=== PATIENT | male | born 1985 | race Caucasian/White ===

== ENCOUNTER 2017-09-09 17:55 | Emergency (ER) | payer OTHER ==
[2017-09-09] MEDS ORDERED: PENICILLIN VK 500MG STARTER 4 TAB BTL PO STA (18:45)
--- NOTE | 2017-09-09 18:47 | ED ---
General Adult HPI - General Chief complaint: Skin/Abscess/Foreign Body Stated complaint: Facial Abscess Time Seen by Provider: 09/09/17 18:26 Source: patient, RN notes reviewed Mode of arrival: ambulatory Limitations: no limitations - History of Present Illness Initial comments: 32-year-old male presents to the emergency determine for a chief complaint of swelling after dental extraction. Patient had tooth extracted about 5 days ago. Patient states he has increased swelling in the upper right jaw. Patient states he talked to the dentist earlier today who recommended he come back in but patient came to the emergency department instead. Patient is not on antibiotics. Patient denies any fevers or chills at home. Patient denies any neck stiffness or swelling in the neck.Patient has no other complaints at this time including shortness of breath, chest pain, abdominal pain, nausea or vomiting, headache, or visual changes. - Related Data Previous Rx's Medication Instructions Recorded Penicillin V Potassium [Pen Vee K] 500 mg PO Q6H 10 Days tablet 09/09/17 Allergies Allergy/AdvReac Type Severity Reaction Status Date / Time No Known Allergies Allergy Verified 09/09/17 18:02 Review of Systems ROS Statement: Those systems with pertinent positive or pertinent negative responses have been documented in the HPI. ROS Other: All systems not noted in ROS Statement are negative. Past Medical History Past Medical History: No Reported History History of Any Multi-Drug Resistant Organisms: None Reported Additional Past Surgical History / Comment(s): back surgery Past Psychological History: No Psychological Hx Reported Smoking Status: Current every day smoker Past Alcohol Use History: None Reported Past Drug Use History: Marijuana General Exam Limitations: no limitations General appearance: alert, in no apparent distress Head exam: Present: atraumatic, normocephalic, normal inspection Eye exam: Present: normal appearance. Absent: scleral icterus, conjunctival injection, periorbital swelling, periorbital tenderness ENT exam: Present: mucous membranes moist, TM's normal bilaterally, normal external ear exam. Absent: normal oropharynx (patient has had tooth 2 extracted. no drainage from the socket) Neck exam: Present: normal inspection, full ROM. Absent: tenderness, meningismus, lymphadenopathy Respiratory exam: Present: normal lung sounds bilaterally. Absent: respiratory distress, wheezes, rales, rhonchi, stridor Cardiovascular Exam: Present: regular rate, normal rhythm, normal heart sounds. Absent: systolic murmur, diastolic murmur, rubs, gallop, clicks Course Vital Signs 09/09/17 18:00 Temperature 98.6 F Pulse Rate 70 Respiratory 18 Rate Blood Pressure 160/105 O2 Sat by Pulse 100 Oximetry Medical Decision Making - Medical Decision Making 32-year-old male presents the emergency department for a chief complaint of dental extraction times 5 days. Patient had tooth extracted without complication. Patient states he noticed swelling. Patient denies fevers or chills at home. Temp 98.6 and pulse 70 at the emergency department. Patient does not appear in distress. Patient has mild swelling to the zygomatic area. Patient will be given penicillin. He was educated to follow up with dentist tomorrow. He is to return to the emergency department if he has any worsening symptoms including fever. Patient is aware and agrees to this. Disposition Clinical Impression: Pain, dental Disposition: HOME SELF-CARE Condition: Good Instructions: Tooth Extraction (ED) Additional Instructions: Please take antibiotic as directed. Take Motrin or Tylenol for pain. Please follow-up with your dentist tomorrow. Please return to the emergency department if you have worsening symptoms or develops fever. Prescriptions: Penicillin V Potassium [Pen Vee K] 500 mg PO Q6H 10 Days tablet Is patient prescribed a controlled substance at d/c from ED?: No Referrals: John Perez MD [STAFF PHYSICIAN] - 1-2 days Time of Disposition: 18:46
[2017-09-09 19:29] VITALS: BP 152/89; PULSE 88; RESP 20; TEMP 98.8
== END 2017-09-09 19:29 | disposition home or self-care (01) ==
LOC: EC 17:55
DX: K08.89 Other specified disorders of teeth and supporting structures (principal); R22.0 Localized swelling, mass and lump, head; K08.409 Partial loss of teeth, unspecified cause, unspecified class; F17.200 Nicotine dependence, unspecified, uncomplicated
CPT/HCPCS: 99282

== ENCOUNTER 2018-05-31 13:20 | Emergency (ER) | payer OTHER ==
[2018-05-31 13:44] VITALS: BP 159/76; PULSE 85; RESP 18; TEMP 98
--- NOTE | 2018-05-31 14:36 | ED ---
General Adult HPI - General Chief complaint: Skin/Abscess/Foreign Body Stated complaint: Side of face swollen/spider bite Time Seen by Provider: 05/31/18 14:07 Source: patient, RN notes reviewed Mode of arrival: ambulatory Limitations: no limitations - History of Present Illness Initial comments: 32-year-old male presents to the emergency department for a chief complaint of left-sided facial redness. Patient states this started about 2 days ago. He states he had a small spot on the left side of his nose that was red and painful. States that it was oozing clear fluid. Patient states that this started as a black spot and may have been a black head or a spider bite. Patient states that when he wakes up he has swelling around the left eye that goes away throughout the day. He denies fevers or chills. He denies any sinus congestion. Patient has no other complaints at this time including shortness of breath, chest pain, abdominal pain, nausea or vomiting, headache, or visual changes. - Related Data Previous Rx's Medication Instructions Recorded Penicillin V Potassium [Pen Vee K] 500 mg PO Q6H 10 Days tablet 09/09/17 Cephalexin [Keflex] 500 mg PO Q6H 10 Days cap 05/31/18 Sulfamethox-Tmp 800-160Mg [Bactrim 1 tab PO Q12HR #20 tab 05/31/18 DS 800-160 mg] Allergies Allergy/AdvReac Type Severity Reaction Status Date / Time No Known Allergies Allergy Verified 09/09/17 18:02 Review of Systems ROS Statement: Those systems with pertinent positive or pertinent negative responses have been documented in the HPI. ROS Other: All systems not noted in ROS Statement are negative. Past Medical History Past Medical History: No Reported History History of Any Multi-Drug Resistant Organisms: None Reported Additional Past Surgical History / Comment(s): back surgery Past Psychological History: No Psychological Hx Reported Smoking Status: Current every day smoker Past Alcohol Use History: None Reported Past Drug Use History: Marijuana General Exam Limitations: no limitations General appearance: alert, in no apparent distress Head exam: Present: atraumatic, normocephalic, normal inspection Eye exam: Present: normal appearance, PERRL, EOMI. Absent: scleral icterus, conjunctival injection, periorbital swelling (no periorbital swelling at this time.) ENT exam: Present: normal exam, normal oropharynx, mucous membranes moist, TM's normal bilaterally, normal external ear exam, other (nares appear normal bilat) Neck exam: Present: normal inspection, full ROM. Absent: tenderness, meningismus, lymphadenopathy Respiratory exam: Present: normal lung sounds bilaterally. Absent: respiratory distress, wheezes, rales, rhonchi, stridor Cardiovascular Exam: Present: regular rate, normal rhythm, normal heart sounds. Absent: systolic murmur, diastolic murmur, rubs, gallop, clicks Neurological exam: Present: alert, oriented X3, CN II-XII intact Psychiatric exam: Present: normal affect, normal mood Skin exam: Present: other (1 cm x 1 cm area of erythema noted on the left upper lateral aspect of the nose, indurated, no fluctance) Course Vital Signs 05/31/18 13:41 Temperature 98.0 F Pulse Rate 85 Respiratory 18 Rate Blood Pressure 159/76 O2 Sat by Pulse 99 Oximetry Medical Decision Making - Medical Decision Making 32-year-old male presents for left-sided facial redness 2 days. Patient states this started off as a black dot on the left superior lateral aspect of the nose. Patient states since then it has become red and minimally painful. States it was oozing clear fluid. Denies any sinus congestion or rhinorrhea. Denies fevers or chills. States that this does cause facial swelling worse when he wakes up in the morning. On exam there is no edema present. Patient does have a small 1 cm x 1 cm area of erythema on the lateral aspect of the nose. I did attempt to I&D this with an 18-gauge needle however no purulent material was expelled. This is indurated, likely a cellulitis. no erythema or edema around the left eye. Patient was prescribed Keflex and Bactrim. However I did discuss that he needs keep a close eye on this and return here if he has any worsening symptoms. Disposition Clinical Impression: Cellulitis Disposition: HOME SELF-CARE Condition: Good Instructions (If sedation given, give patient instructions): Cellulitis (ED) Additional Instructions: Please take antibiotics as directed. Please follow-up with primary care in 1-2 days. Please return here to the emergency department for any worsening symptoms. Prescriptions: Sulfamethox-Tmp 800-160Mg [Bactrim DS 800-160 mg] 1 tab PO Q12HR #20 tab Cephalexin [Keflex] 500 mg PO Q6H 10 Days cap Is patient prescribed a controlled substance at d/c from ED?: No Referrals: David Israel MD [REFERRING] - 1-2 days Time of Disposition: 14:41
[2018-05-31] MEDS ORDERED: SULFAMETH-TMP DS STARTER PACK 2 TAB BTL PO STA (14:46)
[2018-05-31] MEDS ORDERED: CEPHALEXIN 500MG STARTER PACK 4 CAP BTL PO STA (14:46)
== END 2018-05-31 14:54 | disposition home or self-care (01) ==
LOC: EC 13:20
DX: J34.0 Abscess, furuncle and carbuncle of nose (principal); F17.200 Nicotine dependence, unspecified, uncomplicated
CPT/HCPCS: 10060; 99282

== ENCOUNTER → 2020-02-26 | Outpatient (CLI) | payer OTHER ==
--- NOTE | 2020-02-26 16:53 | XR ---
Cervical spine HISTORY: Neck pain, arm numbness 6 views of the cervical spine correlated prior exam dated 11/19/2014 Patient is status post anterior cervical fusion and discectomy at C5-C7. There is anatomic alignment. Loss of normal lordosis is present. There is spondylosis present especially at C4-5 with associated loss of disc height. C7-T1 not well seen. No evident foraminal encroachment. IMPRESSION: Postop changes. Degenerative disc disease.
== END | disposition home or self-care (01) ==
LOC: RADXRYALE 14:26
PROVIDERS: ATTEND Physician Assistant Medical
DX: M50.30 Other cervical disc degeneration, unspecified cervical region (principal); Z98.1 Arthrodesis status
CPT/HCPCS: 72050

== ENCOUNTER → 2020-06-11 | Outpatient (CLI) | payer OTHER ==
--- NOTE | 2020-06-12 06:16 | CT ---
EXAMINATION TYPE: CT sinus wo con DATE OF EXAM: 06/11/2020 COMPARISON: NONE HISTORY: headaches, dizziness, sinus congestion. Chronic sinusitis per order. CT DLP: 518 mGycm. Automated Exposure Control for Dose Reduction was Utilized. TECHNIQUE: CT scan of the sinuses is performed without contrast, axial images are obtained, coronal r eformatted images are also reviewed. FINDINGS: The paranasal sinuses including the ethmoid, sphenoid, and maxillary sinuses bilaterally a re well-aerated without abnormal opacification or suspicious air-fluid levels. There are nonformed o r hypoplastic bilateral frontal sinuses The ostiomeatal complex is patent bilaterally on the coronal images. Nasal septum is deviated to left of midline. Visualized portion of mastoid air cells show no abnormal opacification. The globes are intact bilate rally. IMPRESSION: The paranasal sinuses are clear and the ostiomeatal complex is patent bilaterally.
== END | disposition home or self-care (01) ==
LOC: RADCTMAIN 16:48
PROVIDERS: ATTEND Family Medicine
DX: J32.9 Chronic sinusitis, unspecified (principal); R51.9 Headache, unspecified
CPT/HCPCS: 70486

== ENCOUNTER → 2020-07-02 | Outpatient (CLI) | payer OTHER ==
--- NOTE | 2020-07-02 22:36 | CT ---
EXAMINATION TYPE: CT brain wo/w con DATE OF EXAM: 07/02/2020 COMPARISON: None HISTORY: 34-year-old male vertigo TECHNIQUE: Examination was done in axial plane before and after administration of 100 mL Isovue 300 intravenous contrast. Coronal and sagittal reconstructions performed. CT DLP: 2220 mGycm Automated exposure control for dose reduction was used. FINDINGS: There is no evidence of acute intracranial hemorrhage, acute ischemic changes, mass, mass-effect, or extra-axial fluid collection. There is no effacement of cerebral sulci or basal subarachnoid cister ns. There is no hydrocephalus. There is no midline shift. Ayala-white matter distinction is preserv ed. No enhancing intracranial lesions. Dural venous sinuses are patent. No evident cerebellopontine angle mass by CT. Slight leftward nasal septal deviation. Orbits and globes appear intact. Visualized paranasal sinuses and mastoid air cells well pneumatized. IMPRESSION: No acute intracranial abnormality seen. No enhancing intracranial lesions identified.
== END | disposition home or self-care (01) ==
LOC: RADCTMAIN 16:43
PROVIDERS: ATTEND Otolaryngology
DX: R42 Dizziness and giddiness (principal)
CPT/HCPCS: 70470; Q9967

== ENCOUNTER → 2021-11-18 | Outpatient (CLI) | payer OTHER ==
--- NOTE | 2021-11-18 09:26 | US ---
EXAMINATION TYPE: US scrotum with doppler. Grayscale and color Doppler Duplex imaging performed of t eva scrotum. DATE OF EXAM: 11/18/2021 COMPARISON: NONE CLINICAL HISTORY: [id number] unspec disorder male. Palpable area within left scrotum x 1 month. EXAM MEASUREMENTS: TESTICLES: Right Testicle: 5.0 x 3.5 x 1.9 cm Left Testicle: 5.2 x 3.2 x 2.2 cm EPIDIDYMIS HEAD: Right Epididymis: 1.1 x 0.9 x 1.3 cm Left Epididymis: 1.1 x 1.1 x 1.0 cm Doppler performed to assess for testicular vascularity; bilateral color flow and waveforms are seen. Testicular echotexture is homogenous and symmetric. Small right and left hydrocele is present. Presence of hydroceles: Right: 2.5 x 2.1 x 0.7 cm. Left: 2.4 x 1.0 x 0.6 cm. Presence of varicoceles: Prominent vessels seen on the left: 2.5 mm. IMPRESSION: Mild left-sided varicocele suspected. Small right and left hydrocele. No evident intrates ticular mass.
[2021-11-18 19:05] LABS: Albumin 4.4 g/dL (3.8-4.9); Albumin/Globulin Ratio 1.91 (1.60-3.17); Anion Gap 8.8 mmol/L (10.00-18.00); BUN/Creat Ratio 13.44 Ratio (12.00-20.00); Blood Urea Nitrogen 12.1 mg/dL (9.0-27.0); C Reactive Protein 0.4 mg/dL (0.00-0.80); Calcium 9.2 mg/dL (8.7-10.3); Carbon Dioxide 28.2 mmol/L (20.0-27.5); Globulin 2.3 g/dL (1.6-3.3); Non-African American GFR(CKD) 108.7 (60.0-200.0); Potassium 3.7 mmol/L (3.5-5.5); Total Bilirubin 0.3 mg/dL (0.30-1.20); Total Protein 6.7 g/dL (6.2-8.2)
[2021-11-18 19:15] LABS: Basophils # (A) 0.06 X 10*3/uL (0.00-0.10); Basophils % (A) 0.6 %; Eosinophils # (A) 0.09 X 10*3/uL (0.04-0.35); Eosinophils % (A) 0.9 %; HGB 15.5 g/dL (13.0-17.0); Immature Grans, Automated 0.5 %; Lymphocytes # (A) 2.63 X 10*3/uL (0.90-5.00); Lymphocytes % (A) 26.9 %; MCH 30.8 pg (27.0-32.0); MCHC 34.4 g/dL (32.0-37.0); MCV 89.3 fL (80.0-97.0); Mean Platelet Volume 11.1 fL (9.5-12.2); Monocytes # (A) 0.83 X 10*3/uL (0.20-1.00); Monocytes % (A) 8.5 %; NRBC Per 100 WBC 0 /100 WBCS (0.0-0.0); Neutrophils # (A) 6.11 X 10*3/uL (1.80-7.70); Neutrophils % (A) 62.6 %; Platelet Count 213 X 10*3/uL (140-440); RBC 5.04 X 10*6/uL (4.40-5.60); RDW 13.6 % (11.5-14.5); WBC 9.77 X 10*3/uL (4.50-10.00)
[2021-11-18 19:32] LABS: Erythrocyte Sedimentation Rate 5 mm/Hr (0-15)
[2021-11-18 20:39] LABS: Gliadin AB IgA, Deaminated NEGATIVE (NEGATIVE); Gliadin AB IgA, Unit 2.2 U/mL; Gliadin AB IgG, Deaminated NEGATIVE (NEGATIVE); Gliadin AB IgG, Unit <0.4 U/mL
== END | disposition home or self-care (01) ==
LOC: RADUSWWP 06:54
PROVIDERS: ATTEND Family Medicine
DX: N43.3 Hydrocele, unspecified (principal)
CPT/HCPCS: 76870; 80053; 83516; 85025; 85652; 86140; 93975

== ENCOUNTER → 2021-11-18 | Outpatient (CLI) | payer OTHER | END | disposition home or self-care (01) | LOC: LABWHC1 14:05 | PROVIDERS: ATTEND Internal Medicine Gastroenterology | DX: Z53.9 Procedure and treatment not carried out, unspecified reason (principal) ==

== ENCOUNTER 2022-01-07 07:18 | Day surgery (SDC) | payer OTHER ==
[2022-01-05 13:46] VITALS: BMI 26.6
[2022-01-07] MEDS ORDERED: LACTATED RINGERS 1,000 ML IV SCH (07:33)
[2022-01-07] MEDS ORDERED: LIDOCAINE 1% (10MG/ML) FOR IV START INTRADERMA PRN (07:33)
[2022-01-07] MEDS ORDERED: LACTATED RINGERS 1,000 ML IV ONE (07:49)
[2022-01-07 07:51] VITALS: TEMP 98
[2022-01-07] MEDS ORDERED: PROPOFOL 10 MG/ML 20 ML VIAL IV ONE (08:37)
--- NOTE | 2022-01-07 08:59 | P.PCN ---
Date of Procedure: 01/07/22 Procedure(s) Performed: Brief history: Patient is a pleasant 36-year-old white male scheduled for an elective upper endoscopy as well as colonoscopy as a part of evaluation of epigastric pain/diffuse abdominal pain associated with change in bowel habits for the last 2 years duration. He was started on Prilosec 20 mg daily with no help. Procedure performed: Esophagogastroduodenoscopy with biopsy Colonoscopy with random biopsies. Preoperative diagnosis: Chronic abdominal pain Change in bowel habits Anesthesia: MAC Procedure: After informed consent was obtained from the patient was brought into the endoscopy unit and IV sedation was administered by anesthesia under continuous monitoring. Initially upper endoscopy was done. The Olympus GF 160 video endoscope was inserted inserted into the mouth and esophagus intubated without any difficulty and was gradually advanced into the stomach and duodenum and carefully examined. The bulb and second part of the duodenum appeared normal. Biopsies were done from the duodenum to rule out celiac disease. The scope was then withdrawn into the stomach adequately insufflated with air and upon careful examination the antrum had linear areas of erythema consistent with gastritis and biopsies were done from this area. Mucosa of the body, cardia and fundus appeared normal. The scope was then withdrawn into the esophagus. The GE junction was located at 40 cm to the incisors. It appeared regular with no erythema erosions or ulcerations. Rest of the esophagus appeared normal. Patient tolerated the procedure well. At this time the patient continued to remain sedation. Initial digital rectal examination was normal. Olympus CF 160 video colonoscope was then inserted into the rectum and gradually advanced to the cecum without any difficulty. Careful examination was performed as the scope was gradually being withdrawn. The prep was excellent. The ileum was intubated and 20 cm visualized appeared normal. The cecum, ascending colon, transverse colon, descending colon, sigmoid colon and rectum appeared normal. Random biopsies were done from ascending and descending colon to rule out microscopic/collagenous colitis. Retroflexion was performed in the rectum and no lesions were noted. Patient tolerated the procedure well. Impression: 1. Upper endoscopy revealed mild antral gastritis but no evidence of esophagitis or peptic ulcer disease 2. Colonoscopy was within normal limits with no evidence of colorectal neoplasia Recommendations: Findings of this examination were discussed with the patient as well as his family. He was advised to follow with the biopsy results. Continue current medications and be seen in office in 3-4 weeks.
[2022-01-07 10:03] VITALS: BP 128/76; PULSE 58; RESP 20
== END 2022-01-07 09:32 | disposition home or self-care (01) ==
LOC: ORWHC2ENDO 07:18
PROVIDERS: ATTEND Internal Medicine Gastroenterology
DX: K29.50 Unspecified chronic gastritis without bleeding (principal); R19.4 Change in bowel habit; I10 Essential (primary) hypertension; F17.200 Nicotine dependence, unspecified, uncomplicated; F41.9 Anxiety disorder, unspecified; G43.909 Migraine, unspecified, not intractable, without status migrainosus; Z79.899 Other long term (current) drug therapy
CPT/HCPCS: 88305; 45380; 43239; J2704

== ENCOUNTER → 2023-01-11 | Outpatient (CLI) | payer OTHER ==
--- NOTE | 2023-01-11 10:52 | XR ---
EXAMINATION TYPE: XR shoulder complete RT DATE OF EXAM: 01/11/2023 COMPARISON: NONE HISTORY: Pain TECHNIQUE: Three views are submitted. FINDINGS: The osseous structures are intact. There is no acute fracture or dislocation. AC joint hypertrophic arthropathy.. IMPRESSION: 1. Hypertrophic arthropathy AC joint correlate for impingement\rotator cuff disease..
== END | disposition home or self-care (01) ==
LOC: RADXRYALE 10:32
PROVIDERS: ATTEND Physician Assistant Medical
DX: M19.011 Primary osteoarthritis, right shoulder (principal)